=== PATIENT | male | born 1980 | race Caucasian/White ===

== ENCOUNTER 2020-02-27 09:32 | Emergency (ER) | payer SELFPAY ==
[~2020-02-27] VITALS: Ht 188 cm; Wt 114.8 kg
[~2020-02-27 09:32] MED LIST: NAPR-1154 PO; NO HOME MEDS
[2020-02-27 09:34] VITALS: BP 164/93
[2020-02-27] MEDS ORDERED: PRED20TA PO (10:51)
== END 2020-02-27 11:00 | disposition home or self-care (01) ==
LOC: ER 09:33
DX: L25.9 Unspecified contact dermatitis, unspecified cause (principal); F12.90 Cannabis use, unspecified, uncomplicated; Z86.19 Personal history of other infectious and parasitic diseases; Z87.442 Personal history of urinary calculi; Z72.89 Other problems related to lifestyle; Z59.0 Homelessness; Z60.2 Problems related to living alone; Z79.899 Other long term (current) drug therapy
CPT/HCPCS: 99283

== ENCOUNTER 2020-03-12 12:46 | Emergency (ER) | payer MEDICAID ==
[~2020-03-12] VITALS: Ht 188 cm; Wt 110.0 kg
[~2020-03-12 12:46] MED LIST changes: +PRED20TA PO
[2020-03-12] MEDS ORDERED: normal saline 1000ml 1,000 ML IV ONE (15:45)
[2020-03-12] MEDS ORDERED: LORazepam 1 MG tablet PO ONE (15:45)
[2020-03-12] MEDS ORDERED: ondansetron/PF 4mg/2ml inj IV ONE (15:45)
[2020-03-12 16:28] LABS: BASOPHILS # (AUTO) 0.1 X10'3 (0-0.2); BASOPHILS % (AUTO) 0.4 % (0-1); EOSINOPHILS # (AUTO) 0.1 X10'3 (0-0.9); EOSINOPHILS % (AUTO) 0.8 % (0-6); HEMATOCRIT 50.7 % (42.0-52.0); HEMOGLOBIN 16.7 g/dl (14.0-17.9); LYMPHOCYTES # (AUTO) 3.6 X10'3 (1.1-4.8); LYMPHOCYTES % (AUTO) 19.1 % (21-51); MEAN CORPUSCULAR HEMOGLOBIN 30.3 PG (27.0-31.0); MEAN CORPUSCULAR VOLUME 91.9 FL (78-98); MEAN PLATELET VOLUME 7.6 FL (7.4-10.4); MONOCYTES # (AUTO) 1.7 X10'3 (0-0.9); MONOCYTES % (AUTO) 9.3 % (2-12); NEUTROPHILS # (AUTO) 13.3 X10'3 (1.8-7.7); NEUTROPHILS % (AUTO) 70.4 % (42-75); PLATELET COUNT 213 X10'3 (140-440); RED BLOOD COUNT 5.52 X10'6 (4.70-6.10); RED CELL DISTRIBUTION WIDTH 15.4 % (11.5-14.5); WHITE BLOOD COUNT 18.8 X10'3 (4.5-11.0)
[2020-03-12 16:30] LABS: ALANINE AMINOTRANSFERASE 392 U/L (12-78); ALBUMIN 4.1 G/DL (3.4-5.0); ALBUMIN/GLOBULIN RATIO 0.9 (1.1-1.5); ALKALINE PHOSPHATASE 111 IU/L (46-116); ANION GAP 9 (8-16); ASPARTATE AMINO TRANSFERASE 309 U/L (10-37); BILIRUBIN,TOTAL 1.3 MG/DL (0.1-1.0); BLOOD UREA NITROGEN 20 MG/DL (7-18); BUN/CREATININE RATIO 20.6 (5.4-32.0); CALCIUM 9.2 MG/DL (8.5-10.1); CHLORIDE 103 MMOL/L (99-107); CREATININE 0.97 MG/DL (0.60-1.10); GLUCOSE 112 MG/DL (70-104); LIPASE 836 U/L (73-393); POTASSIUM 3.7 MMOL/L (3.5-5.1); SODIUM 143 MMOL/L (135-145); TOTAL CARBON DIOXIDE 30.9 MMOL/L (24-32); TOTAL PROTEIN 8.5 G/DL (6.4-8.2); eGFR 85 ML/MIN
[2020-03-12] MEDS ORDERED: ONDA4TAB6 PO (16:49)
[2020-03-12 17:22] VITALS: BP 126/73
== END 2020-03-12 17:20 | disposition home or self-care (01) ==
LOC: ER 12:46
DX: K29.20 Alcoholic gastritis without bleeding (principal); F10.10 Alcohol abuse, uncomplicated; F12.90 Cannabis use, unspecified, uncomplicated; Z98.890 Other specified postprocedural states; Z60.2 Problems related to living alone; Z59.0 Homelessness; Z79.899 Other long term (current) drug therapy; Y90.9 Presence of alcohol in blood, level not specified
CPT/HCPCS: 36415; 80053; 83690; 85025; 93005; 96361; 96374; 99284; J2405; J7030

== ENCOUNTER 2020-09-24 11:15 | Emergency (ER) | payer BC, MEDICAID ==
[~2020-09-24] VITALS: Ht 185.4 cm; Wt 112.5 kg
[~2020-09-24 11:15] MED LIST changes: +ONDA4TAB6 PO; -PRED20TA PO
[2020-09-24 12:31] LABS: EOSINOPHILS # (AUTO) 0.2 X10'3 (0-0.9); EOSINOPHILS % (AUTO) 4.4 % (0-6); HEMATOCRIT 40.7 % (42.0-52.0); HEMOGLOBIN 13.5 g/dl (14.0-17.9); LYMPHOCYTES % (AUTO) 21.5 % (21-51); MEAN CORPUSCULAR HEMOGLOBIN 30.2 PG (27.0-31.0); MEAN CORPUSCULAR HGB CONC 33.1 g/dL (33.0-36.5); MEAN CORPUSCULAR VOLUME 91.3 FL (78-98); MEAN PLATELET VOLUME 7.7 FL (7.4-10.4); MONOCYTES # (AUTO) 0.5 X10'3 (0-0.9); MONOCYTES % (AUTO) 11.5 % (2-12); NEUTROPHILS # (AUTO) 2.8 X10'3 (1.8-7.7); NEUTROPHILS % (AUTO) 61.6 % (42-75); PLATELET COUNT 168 X10'3 (140-440); RED BLOOD COUNT 4.46 X10'6 (4.70-6.10); WHITE BLOOD COUNT 4.6 X10'3 (4.5-11.0)
[2020-09-24 12:44] LABS: ALANINE AMINOTRANSFERASE 60 U/L (12-78); ALBUMIN 2.9 G/DL (3.4-5.0); ALBUMIN/GLOBULIN RATIO 0.6 (1.1-1.5); ALKALINE PHOSPHATASE 117 IU/L (46-116); ANION GAP 9 (8-16); ASPARTATE AMINO TRANSFERASE 93 U/L (10-37); BILIRUBIN,TOTAL 0.8 MG/DL (0.1-1.0); BLOOD UREA NITROGEN 9 MG/DL (7-18); BUN/CREATININE RATIO 12.2 (5.4-32.0); CALCIUM 8.7 MG/DL (8.5-10.1); CHLORIDE 105 MMOL/L (99-107); CREATININE 0.74 MG/DL (0.60-1.10); GLUCOSE 109 MG/DL (70-104); POTASSIUM 3.7 MMOL/L (3.5-5.1); SODIUM 142 MMOL/L (135-145); TOTAL CARBON DIOXIDE 28.4 MMOL/L (24-32); TOTAL PROTEIN 7.7 G/DL (6.4-8.2); eGFR > 90 ML/MIN
[2020-09-24 13:34] VITALS: BP 115/56
== END 2020-09-24 13:35 | disposition home or self-care (01) ==
LOC: ER 11:16
DX: R60.9 Edema, unspecified (principal); F12.90 Cannabis use, unspecified, uncomplicated; Z86.19 Personal history of other infectious and parasitic diseases; Z87.442 Personal history of urinary calculi; Z72.89 Other problems related to lifestyle; Z60.2 Problems related to living alone; Z59.0 Homelessness; Z79.899 Other long term (current) drug therapy
CPT/HCPCS: 36415; 80053; 85025; 93970; 99284

== ENCOUNTER 2021-02-19 05:46 | Inpatient (IN) | payer BC, MEDICAID ==
[~2021-02-19] VITALS: Ht 188 cm; Wt 100.0 kg
[2021-02-19] MEDS ORDERED: ondansetron/PF 4mg/2ml inj IV ONE (07:20)
[2021-02-19] MEDS ORDERED: normal saline 1000ML IV soln IVB ONE (07:20)
[2021-02-19] MEDS ORDERED: famotidine/PF 10 mg/ml inj IV ONE (07:25)
[2021-02-19] MEDS ORDERED: pantoprazole 40 MG vial IV ONE (07:25)
[2021-02-19 08:31] LABS: ALANINE AMINOTRANSFERASE 51 U/L (12-78); ALBUMIN 2.4 G/DL (3.4-5.0); ALBUMIN/GLOBULIN RATIO 0.5 (1.1-1.5); ALKALINE PHOSPHATASE 170 IU/L (46-116); ANION GAP 11 (8-16); ASPARTATE AMINO TRANSFERASE 89 U/L (10-37); BILIRUBIN,TOTAL 2.6 MG/DL (0.1-1.0); BLOOD UREA NITROGEN 11 MG/DL (7-18); BUN/CREATININE RATIO 11.1 (5.4-32.0); CHLORIDE 107 MMOL/L (99-107); CREATININE 0.99 MG/DL (0.60-1.10); GLUCOSE 126 MG/DL (70-104); POTASSIUM 3.2 MMOL/L (3.5-5.1); SODIUM 145 MMOL/L (135-145); TOTAL CARBON DIOXIDE 27.5 MMOL/L (24-32); TOTAL PROTEIN 7.3 G/DL (6.4-8.2); eGFR 83 ML/MIN
[2021-02-19 08:34] LABS: CLARITY,URINE CLOUDY (Clear); COLOR,URINE BROWN (Yellow); GLUCOSE, URINE NEGATIVE (Neg); KETONES,URINE TRACE mg/dl (Neg); LEUKOCYTE ESTERASE ,URINE NEGATIVE (Neg); NITRITES, URINE NEGATIVE (Neg); OCCULT BLOOD,URINE LARGE (Neg); PROTEIN,URINE >=300 mg/dl (Neg)
[2021-02-19 08:35] LABS: LIPASE 329 U/L (73-393); TROPONIN I < 0.04 NG/ML (0.0-0.05)
[2021-02-19 09:00] LABS: UA COLLECTION TYPE VOIDED
[2021-02-19 09:15] LABS: RBC,URINE TNTC /HPF (0-2)
[2021-02-19 09:18] LABS: CELLULAR CAST 0-4 /LPF (NEGATIVE); HYALINE CASTS 0-3 /LPF (NEGATIVE)
[2021-02-19 09:20] LABS: SQUAMOUS EPITHELIAL CELL,UR FEW /LPF (FEW)
[2021-02-19 09:25] LABS: BASOPHILS % (AUTO) 0.7 % (0-1); EOSINOPHILS % (AUTO) 0.6 % (0-6); HEMATOCRIT 34.1 % (42.0-52.0); HEMOGLOBIN 11.6 g/dl (14.0-17.9); LYMPHOCYTES # (AUTO) 0.6 X10'3 (1.1-4.8); LYMPHOCYTES % (AUTO) 17.7 % (21-51); MEAN CORPUSCULAR HEMOGLOBIN 32.2 PG (27.0-31.0); MEAN CORPUSCULAR HGB CONC 34.1 g/dL (33.0-36.5); MEAN CORPUSCULAR VOLUME 94.6 FL (78-98); MEAN PLATELET VOLUME 8.8 FL (7.4-10.4); MONOCYTES # (AUTO) 0.4 X10'3 (0-0.9); MONOCYTES % (AUTO) 12.5 % (2-12); NEUTROPHILS # (AUTO) 2.2 X10'3 (1.8-7.7); NEUTROPHILS % (AUTO) 68.5 % (42-75); RED CELL DISTRIBUTION WIDTH 15.8 % (11.5-14.5); WHITE BLOOD COUNT 3.3 X10'3 (4.5-11.0)
[2021-02-19 09:25] LABS: BACTERIA,URINE 1+ /HPF (Neg); WBC,URINE 0-4 /HPF (0-4)
[2021-02-19 09:31] LABS: MUCUS STRANDS FEW /LPF (Neg)
[2021-02-19 09:33] LABS: PLATELET COUNT 43 X10'3 (140-440)
[2021-02-19] MEDS ORDERED: dexamethasone sod phosphate 10mg/ml inj IV STA (09:55)
[2021-02-19] MEDS ORDERED: metoclopramide 5 mg/ml inj IV ONE (11:40)
[2021-02-19 11:46] LABS: PARTIAL THROMBOPLASTIN TIME 32 SECONDS (22-32)
[2021-02-19 11:55] LABS: RED BLOOD COUNT 3.64 X10'6 (4.70-6.10); RETICULOCYTE % (AUTO) 0.7 % (0.5-1.5)
[2021-02-19 12:08] LABS: LACTATE DEHYDROGENASE 309 U/L (85-227)
[2021-02-19 12:41] LABS: PLATELET ESTIMATE DECREASED; TOTAL CELLS COUNTED 100
[2021-02-19] MEDS ORDERED: acetaminophen 325mg tablet PO PRN ×2 (14:30)
[2021-02-19] MEDS ORDERED: HYDROcodone/acetaminophen 10/325mg tab PO PRN (14:30)
[2021-02-19] MEDS ORDERED: ondansetron/PF 4mg/2ml inj IV PRN (14:30)
[2021-02-19] MEDS ORDERED: HYDROcodone/acetaminophen 5mg/325mg tablet PO PRN (14:30)
[2021-02-19] MEDS ORDERED: mag hydrox/Alum hydrox/simeth 30ml oral suspension PO PRN (14:30)
[2021-02-19] MEDS ORDERED: magnesium hydroxide 30ml (MOM) UD suspension PO PRN (14:30)
[2021-02-19] MEDS ORDERED: morphine 2 MG/ML inj. syringe IV PRN ×2 (14:30)
[2021-02-19 15:02] LABS: PHOSPHORUS 2.7 MG/DL (2.3-4.5)
[2021-02-19] MEDS ORDERED: NO HOME MEDS (15:12)
--- NOTE | 2021-02-19 15:14 | NUR ---
ASSUMED CARE OF PT FROM WILLIAMS MOORE,
--- NOTE | 2021-02-19 15:23 | NUR ---
pt is resting quietly on gurney, resp even and unlabored
[2021-02-19 16:29] VITALS: BP 134/81
[2021-02-19 16:48] VITALS: BP 126/73
[2021-02-19] MEDS ORDERED: LORazepam 1 MG tablet PO PRN (17:15)
[2021-02-19] MEDS ORDERED: LORazepam 2 mg/ml vial IV PRN (17:15)
[2021-02-19] MEDS ORDERED: thiamine inj. 100 MG in normal saline 100ml IV soln 100 ML IV ONE (17:15)
[2021-02-19] MEDS ORDERED: folic acid 1mg/0.2ml inj IV ONE (17:20)
[2021-02-19] MEDS ORDERED: MULTIVIT-MIN/FERROUS GLUCONATE 9 MG/15 ML LIQUID PO ONE (17:20)
[2021-02-19 17:48] VITALS: BP 128/74
[2021-02-19 19:45] VITALS: BP 92/69
[2021-02-19] MEDS: docusate sod 100mg capsule PO SCH (23:02)
[2021-02-19] MEDS: dextrose 5%-1/2 normal saline 1,000 ML IV SCH (23:04)
[2021-02-20] VITALS: BP 129/66
[2021-02-20 06:33] LABS: BASOPHILS % (AUTO) 0.2 % (0-1); EOSINOPHILS % (AUTO) 0.3 % (0-6); HEMATOCRIT 34.6 % (42.0-52.0); HEMOGLOBIN 11.8 g/dl (14.0-17.9); LYMPHOCYTES # (AUTO) 0.5 X10'3 (1.1-4.8); LYMPHOCYTES % (AUTO) 7.9 % (21-51); MEAN CORPUSCULAR HEMOGLOBIN 32.4 PG (27.0-31.0); MEAN CORPUSCULAR HGB CONC 34.3 g/dL (33.0-36.5); MEAN CORPUSCULAR VOLUME 94.4 FL (78-98); MEAN PLATELET VOLUME 8.9 FL (7.4-10.4); MONOCYTES # (AUTO) 0.4 X10'3 (0-0.9); MONOCYTES % (AUTO) 6.1 % (2-12); NEUTROPHILS % (AUTO) 85.5 % (42-75); PLATELET COUNT 69 X10'3 (140-440); RED BLOOD COUNT 3.66 X10'6 (4.70-6.10); RED CELL DISTRIBUTION WIDTH 16.2 % (11.5-14.5); WHITE BLOOD COUNT 5.9 X10'3 (4.5-11.0)
[2021-02-20 06:47] LABS: ALANINE AMINOTRANSFERASE 42 U/L (12-78); ALBUMIN 2.2 G/DL (3.4-5.0); ALKALINE PHOSPHATASE 117 IU/L (46-116); ANION GAP 7 (8-16); ASPARTATE AMINO TRANSFERASE 71 U/L (10-37); BILIRUBIN,TOTAL 4.4 MG/DL (0.1-1.0); BLOOD UREA NITROGEN 17 MG/DL (7-18); BUN/CREATININE RATIO 17.2 (5.4-32.0); CALCIUM 7.3 MG/DL (8.5-10.1); CHLORIDE 105 MMOL/L (99-107); CREATININE 0.99 MG/DL (0.60-1.10); GLUCOSE 158 MG/DL (70-104); SODIUM 139 MMOL/L (135-145); TOTAL CARBON DIOXIDE 27.1 MMOL/L (24-32); eGFR 83 ML/MIN
[2021-02-20 06:48] LABS: POTASSIUM 3.9 MMOL/L (3.5-5.1)
[2021-02-20 06:49] LABS: TOTAL PROTEIN 6.9 G/DL (6.4-8.2)
[2021-02-20 06:59] LABS: ALBUMIN/GLOBULIN RATIO 0.5 (1.1-1.5)
[2021-02-20 07:00] VITALS: BP 110/65
--- NOTE | 2021-02-20 07:29 | NUR ---
Problems reprioritized. Patient report given, questions answered & plan of care reviewed with Shadia MOORE.
[2021-02-20] MEDS: docusate sod 100mg capsule PO SCH (07:57)
[2021-02-20] MEDS ORDERED: multivitamins, therapeutics tablet PO SCH (08:00)
[2021-02-20] MEDS: dextrose 5%-1/2 normal saline 1,000 ML IV SCH (08:00)
[2021-02-20] MEDS ORDERED: folic acid inj. 2 MG, thiamine inj. 100 MG, MVI, adult No.4 with vit. K 10 ML in dextro... IV SCH ×4 (08:00)
[2021-02-20] MEDS ORDERED: thiamine 100mg tablet PO SCH (08:00)
[2021-02-20] MEDS ORDERED: folic acid 1mg tablet PO SCH (08:00)
[2021-02-20] MEDS ORDERED: ONDA4TAB6 PO (09:52)
[2021-02-20] MEDS ORDERED: LORA-269 PO (09:52)
--- NOTE | 2021-02-20 11:52 | NUR ---
Pt discharged home by Dr Gomes, no current withdrawl symptoms. Pt escript ativan perscription and zofran. Called pharmacy, no triplicate needed. IV taken out, Pt took all belongings from room. Pt ordered uber for discharge home.
== END 2021-02-20 11:50 | disposition home or self-care (01) ==
LOC: ER 05:47 → ED HOLD 14:31 → SUR 3N 19:30
PROVIDERS: ADMIT Internal Medicine; ATTEND Internal Medicine
PROC: 30233N1 Transfusion of Nonautologous Red Blood Cells into Peripheral Vein, Percutaneous Approach (ICD-10-PCS; principal; 2021-02-19)
DX: B18.2 Chronic viral hepatitis C (principal); D61.818 Other pancytopenia; K85.90 Acute pancreatitis without necrosis or infection, unspecified; R31.9 Hematuria, unspecified; E86.0 Dehydration; F10.20 Alcohol dependence, uncomplicated; Z60.2 Problems related to living alone; Z20.822 Contact with and (suspected) exposure to COVID-19; F12.90 Cannabis use, unspecified, uncomplicated; Z87.442 Personal history of urinary calculi; Z59.0 Homelessness
CPT/HCPCS: 36415; 36430; 74176; 80053; 80320; 81001; 82948; 83615; 83690; 83880; 84100; 84484; 85007; 85025; 85045; 85610; 85651; 85730; 86885; 86900; 86901; 87081; 87635; 96374; 96375; 99285; C9113; C9803; G0378; J1100; J2405; J2765; J3411; J3490; J7030; P9035

== ENCOUNTER 2021-03-22 11:13 | Emergency (ER) | payer MEDICAID ==
[~2021-03-22] VITALS: Ht 185.4 cm; Wt 100.0 kg
[~2021-03-22 11:13] MED LIST changes: +LORA-269 PO; -NAPR-1154 PO; -NO HOME MEDS
[2021-03-22 11:23] VITALS: BP 145/104
[2021-03-22] MEDS ORDERED: ONDA4TAB6 PO (13:08)
== END 2021-03-22 13:14 | disposition home or self-care (01) ==
LOC: ER 11:13
DX: R11.0 Nausea (principal); F12.90 Cannabis use, unspecified, uncomplicated; Z76.0 Encounter for issue of repeat prescription; Z86.19 Personal history of other infectious and parasitic diseases; Z87.442 Personal history of urinary calculi; Z98.890 Other specified postprocedural states; Z72.89 Other problems related to lifestyle; Z60.2 Problems related to living alone; Z59.0 Homelessness; Z79.899 Other long term (current) drug therapy
CPT/HCPCS: 99281

== ENCOUNTER 2021-04-18 11:49 | Emergency (ER) | payer MEDICAID ==
[~2021-04-18] VITALS: Ht 185.4 cm; Wt 95.5 kg
[2021-04-18 12:22] VITALS: BP 148/94
[2021-04-18] MEDS ORDERED: ONDA4TAB6 PO (12:32)
== END 2021-04-18 13:06 | disposition home or self-care (01) ==
LOC: ER 11:49
DX: R11.2 Nausea with vomiting, unspecified (principal); F12.90 Cannabis use, unspecified, uncomplicated; Z86.19 Personal history of other infectious and parasitic diseases; Z87.442 Personal history of urinary calculi; Z98.890 Other specified postprocedural states; Z72.89 Other problems related to lifestyle; Z60.2 Problems related to living alone; Z59.00 Homelessness unspecified; Z79.899 Other long term (current) drug therapy
CPT/HCPCS: 99281; 99283

== ENCOUNTER 2021-06-13 20:27 | Emergency (ER) | payer MEDICAID ==
[~2021-06-13] VITALS: Ht 185.4 cm; Wt 215.0 kg
[2021-06-13] MEDS ORDERED: thiamine 100mg/ml 2ml inj. IV ONE (21:00)
[2021-06-13 21:05] LABS: BASOPHILS # (AUTO) 0.1 X10'3 (0-0.2); BASOPHILS % (AUTO) 1.7 % (0-1); EOSINOPHILS # (AUTO) 0.1 X10'3 (0-0.9); EOSINOPHILS % (AUTO) 2.7 % (0-6); HEMATOCRIT 29.3 % (42.0-52.0); LYMPHOCYTES # (AUTO) 0.9 X10'3 (1.1-4.8); MEAN CORPUSCULAR HEMOGLOBIN 31.3 PG (27.0-31.0); MEAN CORPUSCULAR HGB CONC 34.1 g/dL (33.0-36.5); MEAN CORPUSCULAR VOLUME 91.6 FL (78-98); MONOCYTES # (AUTO) 0.3 X10'3 (0-0.9); NEUTROPHILS # (AUTO) 2.4 X10'3 (1.8-7.7); NEUTROPHILS % (AUTO) 63.6 % (42-75); PLATELET COUNT 51 X10'3 (140-440); RED CELL DISTRIBUTION WIDTH 16.7 % (11.5-14.5); WHITE BLOOD COUNT 3.7 X10'3 (4.5-11.0)
[2021-06-13] MEDS ORDERED: normal saline 1000ml 1,000 ML IV ONE (21:05)
[2021-06-13] MEDS ORDERED: famotidine/PF 10 mg/ml inj IV ONE (21:05)
[2021-06-13] MEDS ORDERED: pantoprazole IV 40 MG in normal saline 100ml IV soln 100 ML IV ONE (21:05)
[2021-06-13] MEDS ORDERED: ondansetron/PF 4mg/2ml inj IV ONE (21:05)
[2021-06-13] MEDS ORDERED: pantoprazole IV 40 MG in dextrose 5%-water 100 ML IV ONE (21:13)
[2021-06-13 21:19] LABS: ALANINE AMINOTRANSFERASE 35 U/L (12-78); ALBUMIN 2.7 G/DL (3.4-5.0); ALBUMIN/GLOBULIN RATIO 0.5 (1.1-1.5); ALKALINE PHOSPHATASE 114 IU/L (46-116); ANION GAP 17 (8-16); ASPARTATE AMINO TRANSFERASE 64 U/L (10-37); BILIRUBIN,TOTAL 2.7 MG/DL (0.1-1.0); BLOOD UREA NITROGEN 13 MG/DL (7-18); BUN/CREATININE RATIO 9.6 (5.4-32.0); CALCIUM 8.2 MG/DL (8.5-10.1); CHLORIDE 101 MMOL/L (99-107); CREATININE 1.35 MG/DL (0.60-1.10); ETHANOL 0.102 GM/DL (0.0-0.010); GLUCOSE 126 MG/DL (70-104); LIPASE 313 U/L (73-393); SODIUM 141 MMOL/L (135-145); TOTAL CARBON DIOXIDE 23.4 MMOL/L (24-32); TOTAL PROTEIN 7.8 G/DL (6.4-8.2); eGFR 58 ML/MIN
--- NOTE | 2021-06-13 21:25 | NUR ---
REPORTED K CRITICAL TO DR MAXWELL
[2021-06-13] MEDS ORDERED: POTA-207 PO (21:40)
[2021-06-13] MEDS ORDERED: proCHLORperazine 10 MG/2 ml inj IV ONE (21:40)
[2021-06-13] MEDS ORDERED: PROC-8 PO (21:40)
[2021-06-13] MEDS ORDERED: PANT-47 PO (21:40)
[2021-06-13] MEDS ORDERED: chlordiazePOXIDE 25mg capsule PO ONE (21:40)
[2021-06-13 21:41] LABS: PLATELET ESTIMATE DECREASED
[2021-06-13 21:42] LABS: ANISOCYTOSIS 1+; POLYCHROMASIA 1+; TEAR DROP CELLS FEW
[2021-06-13 23:09] VITALS: BP 118/76
== END 2021-06-13 23:00 | disposition home or self-care (01) ==
LOC: ER 20:28
DX: F10.10 Alcohol abuse, uncomplicated (principal); F10.129 Alcohol abuse with intoxication, unspecified; R11.2 Nausea with vomiting, unspecified; R10.84 Generalized abdominal pain; F12.90 Cannabis use, unspecified, uncomplicated; Z86.19 Personal history of other infectious and parasitic diseases; Z87.442 Personal history of urinary calculi; Z98.890 Other specified postprocedural states; Z72.89 Other problems related to lifestyle; Z59.00 Homelessness unspecified; Z60.2 Problems related to living alone; Z79.899 Other long term (current) drug therapy; Y90.0 Blood alcohol level of less than 20 mg/100 ml
CPT/HCPCS: 36415; 80053; 80320; 83690; 85008; 85025; 93005; 96365; 96366; 96375; 99284; C9113; J0780; J2405; J3411; J3490; J7030; J7060

== ENCOUNTER 2021-09-27 16:54 | Emergency (ER) | payer MEDICAID ==
[~2021-09-27] VITALS: Ht 185.4 cm; Wt 90.9 kg
[~2021-09-27 16:54] MED LIST changes: +PANT-47 PO; +PROC-8 PO
--- NOTE | 2021-09-27 17:58 | NUR ---
AGREE WITH PATTERNMAKERIvon MONROYIN GENERAL ASSESSMENT.
[2021-09-27] MEDS ORDERED: proCHLORperazine 10 MG/2 ml inj IV ONE (18:30)
[2021-09-27] MEDS ORDERED: chlordiazePOXIDE 25mg capsule PO ONE (18:30)
[2021-09-27] MEDS ORDERED: pantoprazole 40MG/NS 100ML BAG 100 ML IV ONE (18:30)
[2021-09-27] MEDS ORDERED: ondansetron/PF 4mg/2ml inj IV ONE (18:30)
[2021-09-27] MEDS ORDERED: normal saline 1000ML IV soln IVB ONE (18:30)
[2021-09-27] MEDS ORDERED: famotidine/PF 10 mg/ml inj IV ONE (18:30)
[2021-09-27 18:53] LABS: ALANINE AMINOTRANSFERASE 44 U/L (12-78); ALBUMIN 2.6 G/DL (3.4-5.0); ALKALINE PHOSPHATASE 112 IU/L (46-116); ANION GAP 16 (8-16); ASPARTATE AMINO TRANSFERASE 89 U/L (10-37); BILIRUBIN,TOTAL 4.6 MG/DL (0.1-1.0); BLOOD UREA NITROGEN 18 MG/DL (7-18); BUN/CREATININE RATIO 13.3 (5.4-32.0); CALCIUM 8.3 MG/DL (8.5-10.1); CHLORIDE 99 MMOL/L (99-107); CREATININE 1.35 MG/DL (0.60-1.10); GLUCOSE 107 MG/DL (70-104); LIPASE 829 U/L (73-393); MAGNESIUM 1.6 MG/DL (1.5-2.4); SODIUM 140 MMOL/L (135-145); TOTAL CARBON DIOXIDE 25.1 MMOL/L (24-32); eGFR 58 ML/MIN
[2021-09-27 18:55] LABS: ALBUMIN/GLOBULIN RATIO 0.5 (1.1-1.5); TOTAL PROTEIN 7.8 G/DL (6.4-8.2)
[2021-09-27 18:57] LABS: BASOPHILS # (AUTO) 0.1 X10'3 (0-0.2); BASOPHILS % (AUTO) 1.6 % (0-1); EOSINOPHILS % (AUTO) 0.7 % (0-6); HEMATOCRIT 30.6 % (42.0-52.0); HEMOGLOBIN 10.4 g/dl (14.0-17.9); LYMPHOCYTES # (AUTO) 2.2 X10'3 (1.1-4.8); LYMPHOCYTES % (AUTO) 31.9 % (21-51); MEAN CORPUSCULAR HEMOGLOBIN 31.1 PG (27.0-31.0); MEAN CORPUSCULAR HGB CONC 34.1 g/dL (33.0-36.5); MEAN CORPUSCULAR VOLUME 91.3 FL (78-98); MONOCYTES # (AUTO) 0.6 X10'3 (0-0.9); MONOCYTES % (AUTO) 8.2 % (2-12); NEUTROPHILS # (AUTO) 3.9 X10'3 (1.8-7.7); NEUTROPHILS % (AUTO) 57.6 % (42-75); PLATELET COUNT 85 X10'3 (140-440); RED BLOOD COUNT 3.35 X10'6 (4.70-6.10); RED CELL DISTRIBUTION WIDTH 15.8 % (11.5-14.5); WHITE BLOOD COUNT 6.8 X10'3 (4.5-11.0)
[2021-09-27 18:58] LABS: POTASSIUM 2.7 MMOL/L (3.5-5.1)
[2021-09-27] MEDS ORDERED: thiamine inj. 100 MG in normal saline 100ml IV soln 100 ML IV ONE (19:10)
[2021-09-27] MEDS ORDERED: potassium Cl 10 mEq/100mL bag IV ONE (19:10)
[2021-09-27] MEDS ORDERED: potassium Cl 20 mEq SR tablet PO STA (19:10)
[2021-09-27 20:00] LABS: CLARITY,URINE SLIGHTLY CLOUDY (Clear); COLOR,URINE YELLOW (Yellow); GLUCOSE, URINE NEGATIVE (Neg); KETONES,URINE TRACE mg/dl (Neg); LEUKOCYTE ESTERASE ,URINE NEGATIVE (Neg); NITRITES, URINE NEGATIVE (Neg); OCCULT BLOOD,URINE LARGE (Neg); PROTEIN,URINE 100 mg/dl (Neg)
[2021-09-27 20:08] LABS: UA COLLECTION TYPE URINAL
[2021-09-27 20:17] LABS: BACTERIA,URINE FEW /HPF (Neg); RBC,URINE TNTC /HPF (0-2); SQUAMOUS EPITHELIAL CELL,UR FEW /LPF (FEW); WBC,URINE 0-4 /HPF (0-4)
[2021-09-27] MEDS ORDERED: PROC-8 PO (20:41)
[2021-09-27] MEDS ORDERED: POTA-207 PO (20:41)
[2021-09-27] MEDS ORDERED: PANT-47 PO (20:41)
[2021-09-27 22:24] VITALS: BP 132/79
== END 2021-09-27 22:31 | disposition home or self-care (01) ==
LOC: ER 16:55
DX: K29.20 Alcoholic gastritis without bleeding (principal); E87.6 Hypokalemia; F12.10 Cannabis abuse, uncomplicated; Z87.442 Personal history of urinary calculi
CPT/HCPCS: 36415; 80053; 81001; 83690; 83735; 84484; 85025; 93005; 96365; 96375; 99285; C9113; J0780; J2405; J3411; J3480; J3490; J7030

== ENCOUNTER 2021-10-17 09:37 | Emergency (ER) | payer MEDICAID ==
[~2021-10-17] VITALS: Ht 185.4 cm; Wt 86.4 kg
[~2021-10-17 09:37] MED LIST changes: +POTA-207 PO
[2021-10-17 09:41] VITALS: BP 159/90
[2021-10-17 10:50] LABS: BASOPHILS % (AUTO) 0.5 % (0-1); EOSINOPHILS # (AUTO) 0.1 X10'3 (0-0.9); EOSINOPHILS % (AUTO) 1.9 % (0-6); HEMATOCRIT 25.4 % (42.0-52.0); HEMOGLOBIN 8.6 g/dl (14.0-17.9); LYMPHOCYTES # (AUTO) 1.4 X10'3 (1.1-4.8); LYMPHOCYTES % (AUTO) 18.7 % (21-51); MEAN CORPUSCULAR HEMOGLOBIN 31.1 PG (27.0-31.0); MEAN CORPUSCULAR HGB CONC 33.8 g/dL (33.0-36.5); MEAN CORPUSCULAR VOLUME 91.9 FL (78-98); MEAN PLATELET VOLUME 6.9 FL (7.4-10.4); MONOCYTES # (AUTO) 1.2 X10'3 (0-0.9); MONOCYTES % (AUTO) 16.8 % (2-12); NEUTROPHILS # (AUTO) 4.5 X10'3 (1.8-7.7); NEUTROPHILS % (AUTO) 62.1 % (42-75); PLATELET COUNT 152 X10'3 (140-440); RED BLOOD COUNT 2.76 X10'6 (4.70-6.10); RED CELL DISTRIBUTION WIDTH 18.3 % (11.5-14.5); WHITE BLOOD COUNT 7.3 X10'3 (4.5-11.0)
[2021-10-17 11:06] LABS: ANISOCYTOSIS 2+; LARGE PLATELETS FEW; PLATELET ESTIMATE NORMAL; TOTAL CELLS COUNTED 100
[2021-10-17 11:07] LABS: TARGET CELLS FEW; TEAR DROP CELLS FEW
--- NOTE | 2021-10-17 11:10 | NUR ---
urine sent to LAB
[2021-10-17 11:13] LABS: ALANINE AMINOTRANSFERASE 39 U/L (12-78); ALBUMIN 2.3 G/DL (3.4-5.0); ALBUMIN/GLOBULIN RATIO 0.5 (1.1-1.5); ALKALINE PHOSPHATASE 236 IU/L (46-116); ANION GAP 9 (8-16); ASPARTATE AMINO TRANSFERASE 61 U/L (10-37); BILIRUBIN,TOTAL 3.2 MG/DL (0.1-1.0); BLOOD UREA NITROGEN 9 MG/DL (7-18); BUN/CREATININE RATIO 7.3 (5.4-32.0); CALCIUM 7.8 MG/DL (8.5-10.1); CHLORIDE 102 MMOL/L (99-107); CREATININE 1.23 MG/DL (0.60-1.10); ETHANOL 0.016 GM/DL (0.0-0.010); GLUCOSE 87 MG/DL (70-104); LIPASE 525 U/L (73-393); POTASSIUM 3.1 MMOL/L (3.5-5.1); SODIUM 138 MMOL/L (135-145); TOTAL CARBON DIOXIDE 26.6 MMOL/L (24-32); TOTAL PROTEIN 7.1 G/DL (6.4-8.2); eGFR 64 ML/MIN
[2021-10-17 11:22] LABS: CLARITY,URINE SLIGHTLY CLOUDY (Clear); GLUCOSE, URINE NEGATIVE (Neg); KETONES,URINE TRACE mg/dl (Neg); LEUKOCYTE ESTERASE ,URINE NEGATIVE (Neg); NITRITES, URINE NEGATIVE (Neg); OCCULT BLOOD,URINE LARGE (Neg); PROTEIN,URINE 100 mg/dl (Neg); UROBILINOGEN,URINE 0.2 E.U/dL (0.2-1.0)
[2021-10-17 11:26] LABS: UA COLLECTION TYPE NON-SPECIFIED
[2021-10-17 11:27] LABS: COLOR,URINE DARK YELLOW (Yellow)
[2021-10-17] MEDS ORDERED: SULF1TAB49 PO (11:27)
[2021-10-17 11:30] LABS: RBC,URINE TNTC /HPF (0-2)
[2021-10-17 11:31] LABS: BACTERIA,URINE 1+ /HPF (Neg); MUCUS STRANDS NONE SEEN /LPF (Neg); SQUAMOUS EPITHELIAL CELL,UR FEW /LPF (FEW)
[2021-10-17 11:33] LABS: URINE AMPHETAMINE SCREEN NEGATIVE (Neg); URINE BARBITUATE SCREEN NEGATIVE (Neg); URINE BENZODIAZEPINES SCREEN NEGATIVE (Neg); URINE CANNABINOID SCREEN NEGATIVE (Neg); URINE COCAINE SCREEN NEGATIVE (Neg); URINE METHADONE SCREEN NEGATIVE (Neg); URINE OPIATE SCREEN NEGATIVE (Neg); URINE PHENCYCLIDINE SCREEN NEGATIVE (Neg)
== END 2021-10-17 11:40 | disposition home or self-care (01) ==
LOC: ER 09:38
DX: K70.30 Alcoholic cirrhosis of liver without ascites (principal); F10.20 Alcohol dependence, uncomplicated; H60.02 Abscess of left external ear; F12.90 Cannabis use, unspecified, uncomplicated; Z86.19 Personal history of other infectious and parasitic diseases; Z87.442 Personal history of urinary calculi; Z72.89 Other problems related to lifestyle; Z59.00 Homelessness unspecified; Z60.2 Problems related to living alone; Z79.899 Other long term (current) drug therapy; Y90.6 Blood alcohol level of 120-199 mg/100 ml
CPT/HCPCS: 10060; 36415; 71045; 80053; 80305; 80320; 81001; 83690; 85007; 85025; 87088; 99284

== ENCOUNTER 2022-11-17 14:55 | Emergency (ER) | payer MEDICAID ==
[~2022-11-17] VITALS: Ht 185.4 cm; Wt 88.6 kg
[~2022-11-17 14:55] MED LIST changes: -POTA-207 PO
[2022-11-17 14:59] VITALS: BP 117/73
[2022-11-17 15:28] LABS: CLARITY,URINE CLOUDY (Clear); COLOR,URINE AMBER (Yellow); GLUCOSE, URINE 100 mg/dl (Neg); KETONES,URINE 15 mg/dl (Neg); LEUKOCYTE ESTERASE ,URINE SMALL (Neg); OCCULT BLOOD,URINE MODERATE (Neg); PROTEIN,URINE 30 mg/dl (Neg)
[2022-11-17 15:30] LABS: UA COLLECTION TYPE CLN CATCH MIDSTREAM
[2022-11-17 15:33] LABS: NITRITES, URINE NEGATIVE (Neg)
[2022-11-17 15:36] LABS: BACTERIA,URINE 2+ /HPF (Neg); MUCUS STRANDS MODERATE /LPF (Neg); SQUAMOUS EPITHELIAL CELL,UR FEW /LPF (FEW); WBC,URINE 20-30 /HPF (0-4)
[2022-11-17 15:37] LABS: CELLULAR CAST 0-4 /LPF (NEGATIVE); WBC CLUMPS,URINE FEW /HPF (NEGATIVE)
[2022-11-17 15:41] LABS: BASOPHILS # (AUTO) 0.1 X10'3 (0-0.2); EOSINOPHILS # (AUTO) 0.5 X10'3 (0-0.9); EOSINOPHILS % (AUTO) 9.9 % (0-6); HEMATOCRIT 33.7 % (42.0-52.0); HEMOGLOBIN 11.1 g/dl (14.0-17.9); LYMPHOCYTES # (AUTO) 1.3 X10'3 (1.1-4.8); LYMPHOCYTES % (AUTO) 24.2 % (21-51); MEAN CORPUSCULAR HEMOGLOBIN 31.4 PG (27.0-31.0); MEAN CORPUSCULAR HGB CONC 33.1 g/dL (33.0-36.5); MEAN CORPUSCULAR VOLUME 94.9 FL (78-98); MEAN PLATELET VOLUME 7.7 FL (7.4-10.4); MONOCYTES # (AUTO) 0.6 X10'3 (0-0.9); MONOCYTES % (AUTO) 11.9 % (2-12); NEUTROPHILS # (AUTO) 2.8 X10'3 (1.8-7.7); PLATELET COUNT 76 X10'3 (140-440); RED BLOOD COUNT 3.55 X10'6 (4.70-6.10); RED CELL DISTRIBUTION WIDTH 16.9 % (11.5-14.5); WHITE BLOOD COUNT 5.2 X10'3 (4.5-11.0)
[2022-11-17 16:06] LABS: ALANINE AMINOTRANSFERASE 33 U/L (12-78); ALBUMIN 2.5 G/DL (3.4-5.0); ALBUMIN/GLOBULIN RATIO 0.7 (1.1-1.5); ALKALINE PHOSPHATASE 239 IU/L (46-116); ANION GAP 5 (8-16); ASPARTATE AMINO TRANSFERASE 55 U/L (10-37); BLOOD UREA NITROGEN 17 MG/DL (7-18); BUN/CREATININE RATIO 16.3 (10.0-20.0); CALCIUM 8.3 MG/DL (8.5-10.1); CHLORIDE 106 MMOL/L (99-107); CREATININE 1.04 MG/DL (0.60-1.10); GLUCOSE 125 MG/DL (70-104); LIPASE 363 U/L (73-393); POTASSIUM 3.5 MMOL/L (3.5-5.1); SODIUM 141 MMOL/L (135-145); TOTAL CARBON DIOXIDE 30.3 MMOL/L (24-32); TOTAL PROTEIN 6.2 G/DL (6.4-8.2); eGFR 78 ML/MIN
[2022-11-17] MEDS ORDERED: sulfamethoxazole/trimethoprim DS (800/160mg) tablet PO ONE (17:30)
[2022-11-17] MEDS ORDERED: SULF1TAB49 PO (18:19)
--- NOTE | 2022-11-17 18:26 | NUR ---
SCHEDULED TRANSPORT FOR PATIENT APPROX 1929 ETA
== END 2022-11-17 18:31 | disposition home or self-care (01) ==
LOC: ER 14:55
DX: N39.0 Urinary tract infection, site not specified (principal); R31.9 Hematuria, unspecified; F12.90 Cannabis use, unspecified, uncomplicated; F10.10 Alcohol abuse, uncomplicated; Z87.442 Personal history of urinary calculi; Z86.19 Personal history of other infectious and parasitic diseases; Z59.00 Homelessness unspecified; Z60.2 Problems related to living alone; Z79.899 Other long term (current) drug therapy; Y90.9 Presence of alcohol in blood, level not specified
CPT/HCPCS: 74176; 80053; 81001; 83690; 85025; 87088; 99284

== ENCOUNTER 2022-11-22 13:54 | Emergency (ER) | payer MEDICAID ==
[~2022-11-22] VITALS: Ht 185.4 cm; Wt 88.6 kg
[~2022-11-22 13:54] MED LIST changes: +SULF1TAB49 PO
[2022-11-22 17:31] LABS: BASOPHILS % (AUTO) 0.7 % (0-1); EOSINOPHILS # (AUTO) 0.2 X10'3 (0-0.9); EOSINOPHILS % (AUTO) 3.9 % (0-6); HEMOGLOBIN 11.2 g/dl (14.0-17.9); LYMPHOCYTES # (AUTO) 0.6 X10'3 (1.1-4.8); LYMPHOCYTES % (AUTO) 14.9 % (21-51); MEAN CORPUSCULAR HEMOGLOBIN 31.9 PG (27.0-31.0); MEAN CORPUSCULAR HGB CONC 34.1 g/dL (33.0-36.5); MEAN CORPUSCULAR VOLUME 93.5 FL (78-98); MEAN PLATELET VOLUME 7.7 FL (7.4-10.4); MONOCYTES # (AUTO) 0.5 X10'3 (0-0.9); MONOCYTES % (AUTO) 11.7 % (2-12); NEUTROPHILS # (AUTO) 2.7 X10'3 (1.8-7.7); NEUTROPHILS % (AUTO) 68.8 % (42-75); PLATELET COUNT 62 X10'3 (140-440); RED BLOOD COUNT 3.53 X10'6 (4.70-6.10); RED CELL DISTRIBUTION WIDTH 17.4 % (11.5-14.5); WHITE BLOOD COUNT 3.9 X10'3 (4.5-11.0)
[2022-11-22 17:32] LABS: ALANINE AMINOTRANSFERASE 40 U/L (12-78); ALBUMIN 2.6 G/DL (3.4-5.0); ALKALINE PHOSPHATASE 197 IU/L (46-116); ANION GAP 4 (8-16); ASPARTATE AMINO TRANSFERASE 79 U/L (10-37); BILIRUBIN,TOTAL 4.1 MG/DL (0.1-1.0); BLOOD UREA NITROGEN 16 MG/DL (7-18); BUN/CREATININE RATIO 17.8 (10.0-20.0); CALCIUM 8.3 MG/DL (8.5-10.1); CHLORIDE 105 MMOL/L (99-107); GLUCOSE 132 MG/DL (70-104); POTASSIUM 3.7 MMOL/L (3.5-5.1); SODIUM 138 MMOL/L (135-145); TOTAL CARBON DIOXIDE 28.6 MMOL/L (24-32); eGFR > 90 ML/MIN
[2022-11-22 17:45] LABS: ALBUMIN/GLOBULIN RATIO 0.7 (1.1-1.5); TOTAL PROTEIN 6.2 G/DL (6.4-8.2)
[2022-11-22 18:20] VITALS: BP 127/70
== END 2022-11-22 18:22 | disposition home or self-care (01) ==
LOC: ER 13:54
DX: B19.20 Unspecified viral hepatitis C without hepatic coma (principal); R53.83 Other fatigue; F12.90 Cannabis use, unspecified, uncomplicated; F17.200 Nicotine dependence, unspecified, uncomplicated; Z72.89 Other problems related to lifestyle; Z87.442 Personal history of urinary calculi; Z59.00 Homelessness unspecified; Z60.2 Problems related to living alone; Z79.899 Other long term (current) drug therapy
CPT/HCPCS: 36415; 80053; 85025; 99283

== ENCOUNTER 2023-01-08 09:26 | Emergency (ER) | payer MEDICAID ==
[~2023-01-08] VITALS: Ht 185.4 cm; Wt 88.6 kg
[~2023-01-08 09:26] MED LIST changes: -SULF1TAB49 PO
[2023-01-08] MEDS ORDERED: ondansetron/PF 4mg/2ml inj IV ONE (09:45)
[2023-01-08] MEDS ORDERED: normal saline 1000ML IV soln IVB ONE (09:45)
[2023-01-08 10:02] LABS: HEMOGLOBIN 12.2 g/dl (14.0-17.9); MEAN PLATELET VOLUME 7.6 FL (7.4-10.4)
[2023-01-08 10:04] LABS: HEMATOCRIT 37.1 % (42.0-52.0); PLATELET COUNT 111 X10'3 (140-440); RED BLOOD COUNT 3.94 X10'6 (4.70-6.10); RED CELL DISTRIBUTION WIDTH 20.2 % (11.5-14.5); WHITE BLOOD COUNT 4.6 X10'3 (4.5-11.0)
[2023-01-08 10:17] LABS: ALANINE AMINOTRANSFERASE 51 U/L (12-78); ALBUMIN 2.9 G/DL (3.4-5.0); ALKALINE PHOSPHATASE 294 IU/L (46-116); ANION GAP 10 (8-16); ASPARTATE AMINO TRANSFERASE 68 U/L (10-37); BILIRUBIN,TOTAL 3.8 MG/DL (0.1-1.0); BLOOD UREA NITROGEN 15 MG/DL (7-18); BUN/CREATININE RATIO 14.7 (10.0-20.0); CALCIUM 8.8 MG/DL (8.5-10.1); CHLORIDE 107 MMOL/L (99-107); CREATININE 1.02 MG/DL (0.60-1.10); GLUCOSE 119 MG/DL (70-104); POTASSIUM 3.3 MMOL/L (3.5-5.1); SODIUM 142 MMOL/L (135-145); TOTAL CARBON DIOXIDE 24.6 MMOL/L (24-32); eGFR 79 ML/MIN
[2023-01-08 10:19] LABS: LIPASE 423 U/L (73-393)
[2023-01-08 10:21] LABS: ALBUMIN/GLOBULIN RATIO 0.7 (1.1-1.5); TOTAL PROTEIN 7.1 G/DL (6.4-8.2)
[2023-01-08] MEDS ORDERED: iohexol 300mg/ml 100ml inj. ONE (10:36)
[2023-01-08 10:42] LABS: ANISOCYTOSIS 3+; ELLIPTOCYTES FEW; PLATELET ESTIMATE DECREASED; SCHISTOCYTES FEW; TOTAL CELLS COUNTED 100
[2023-01-08 12:09] LABS: CLARITY,URINE CLEAR (Clear); COLOR,URINE YELLOW (Yellow); GLUCOSE, URINE NEGATIVE (Neg); KETONES,URINE NEGATIVE (Neg); LEUKOCYTE ESTERASE ,URINE NEGATIVE (Neg); NITRITES, URINE NEGATIVE (Neg); OCCULT BLOOD,URINE MODERATE (Neg); PROTEIN,URINE NEGATIVE (Neg)
[2023-01-08 12:20] LABS: UA COLLECTION TYPE CLN CATCH MIDSTREAM
[2023-01-08 12:22] LABS: MUCUS STRANDS FEW /LPF (Neg); SQUAMOUS EPITHELIAL CELL,UR FEW /LPF (FEW); WBC,URINE 0-4 /HPF (0-4)
[2023-01-08 12:23] LABS: BACTERIA,URINE FEW /HPF (Neg)
[2023-01-08 18:27] VITALS: BP 104/41
== END 2023-01-08 18:29 | disposition home or self-care (01) ==
LOC: ER 09:26
DX: K85.90 Acute pancreatitis without necrosis or infection, unspecified (principal); K74.60 Unspecified cirrhosis of liver; K80.20 Calculus of gallbladder without cholecystitis without obstruction; R42 Dizziness and giddiness; R53.83 Other fatigue; F12.90 Cannabis use, unspecified, uncomplicated
CPT/HCPCS: 36415; 71045; 74177; 74181; 76700; 80053; 81001; 82948; 83690; 84484; 85007; 85025; 93005; 96361; 96374; 99285; J2405; J3490; J7030; Q9967

== ENCOUNTER 2025-05-09 09:49 | Emergency (ER) | payer MEDICAID ==
[~2025-05-09] VITALS: Ht 185.4 cm; Wt 99.3 kg
[2025-05-09 10:01] VITALS: TEMP 98.6
--- NOTE | 2025-05-09 10:10 | Physician Documentation ---
History of Present Illness ~ Chief Complaint: Urinary Symptoms Stated Complaint: UTI Time Seen by MD: 10:05 Primary Medical Doctor: [facility] Patient is a pleasant 45-year-old male that presents to the emergency department for evaluation of urinary symptoms. Patient reports that he has previously had a UTI and this feels similar although the pain is in a different location. Patient reports that the pain is in his lower abdomen over his bladder but also extends down into the urethra or his penis. Patient denies any perineal or testicular pain or tenderness denies any drainage from his penis patient does not report any unprotected sex at this time denies that he could have an STI. Patient reports that he had some concern for prostate issue in the his prostate possibly feels tender. Patient denies fever chills nausea vomiting diarrhea at this time. Medication Reconciliation Allergies: Coded Allergies: No Known Allergies (Unverified , 05/09/25) Scheduled Lorazepam (Ativan), 1 TAB PO Q12H Ondansetron Hcl (Zofran), 1 TAB PO Q8H Ondansetron Hcl (Zofran), 1 TAB PO Q8H Pantoprazole Sodium (PROTONIX tablet), 1 TAB PO DAILY Pantoprazole Sodium (PROTONIX tablet), 1 TAB PO DAILY Prochlorperazine Maleate (Compazine), 1 TAB PO Q6H Prochlorperazine Maleate (Compazine), 1 TAB PO Q6H Scheduled PRN Ondansetron Hcl (Zofran), 4 MG PO Q6H PRN for nausea/vomiting Past Medical History Past Medical History: Hepatitis C, Kidney Stones Past Surgical History: other Other Past Surgical History: kidney stone sx Alcohol Use: Abuse Drug Use: marijuana Lives with: Alone Lives In: Homeless Occupation: employed Review of Systems ROS As stated above in the HPI, otherwise all systems are reviewed and negative. Physical Exam Vital Signs: Temperature: 98.6, Source: Temporal, Heart Rate: 107, Respiratory Rate: 18, BP: 147/89, Pulse Oximetry: 99, Weight: 99.300 Oxygen Flow Rate: 0 Physical Exam VITALS: Reviewed and as above. GENERAL: Alert, no apparent distress. HEENT: Normocephalic, atraumatic, PERRL, EOMI, dry mucosa, no erythema RESPIRATORY: Lungs clear, normal breath sounds, no respiratory distress. CHEST: No accessory muscle use, no retractions CV: Regular rate, rhythm, no edema, no murmur, No: JVD GI: Soft, mild tender with palpation to the lower abdomen bilaterally, bowels sounds present, no rebound, guarding, or rigidity BACK: No CVA tenderness, or swelling MUSCULOSKELETAL No deformities, no edema SKIN: Warm and dry, no rash NEURO: Oriented x4, No motor or sensory deficit PSYCH: Normal mood and affect, no agitation Progress Results/Orders Results/Orders Orders - EVER ESCALANTE [employer]WORK[employer]INE[employer] Ct Abdomen Pelvis (05/09/25 12:15) Completed Orders - EVER ESCALANTE [employer] Cbc/Diff (05/09/25 10:13) CMP (05/09/25 10:13) Ua W/Microscopic, Cult If Ind (05/09/25 10:13) Ct Abdomen Pelvis (05/09/25 12:15) Iohexol 300mg/Ml 100ml Inj. (Omnipaque-3 (05/09/25 11:58) Vital Signs 05/09/25 10:01 Temp 98.6 Pulse 107 Resp 18 B/P (MAP) 147/89 Pulse Ox 99 O2 Flow Rate 0 Laboratory Tests Test 05/09/25 10:13 05/09/25 10:18 Urine Specimen Description Cln catch midstream Urine Color Dark yellow Urine Clarity Cloudy Urine pH 6.0 Urine Specific [place] 1.025 Urine Protein Trace Urine Glucose (UA) Negative Urine Ketones Negative Urine Occult Blood Large H Urine Nitrite Negative Urine Bilirubin Negative Urine Urobilinogen 1.0 Urine Leukocyte Esterase Negative Urine RBC Tntc Urine WBC 0-4 Urine Squamous Epithelial Cells Few Urine Bacteria 1+ Urine Culture Indicated Not ind Volume Urine Centrifuged 10 ml Urine Comment White Blood Count 4.4 L Red Blood Count 4.62 L Hemoglobin 13.9 L Hematocrit 41.9 L Mean Corpuscular Volume 90.7 Mean Corpuscular Hemoglobin 30.1 Mean Corpuscular Hemoglobin Concent 33.1 Red Cell Distribution Width 21.7 H Platelet Count 95 L Mean Platelet Volume 8.3 Neutrophils (%) (Auto) 53.1 Lymphocytes (%) (Auto) 28.3 Monocytes (%) (Auto) 11.0 Eosinophils (%) (Auto) 6.1 H Basophils (%) (Auto) 1.5 H Neutrophils # (Auto) 2.3 Lymphocytes # (Auto) 1.2 Monocytes # (Auto) 0.5 Eosinophils # (Auto) 0.3 Basophils # (Auto) 0.1 CBC Comment Platelet Estimate Decreased Red Blood Cell Morphology Perf Basophilic Stippling Anisocytosis 3+ Schistocytes Few Sodium Level 138 Potassium Level 4.0 Chloride Level 107 Carbon Dioxide Level 24.9 Anion Gap 6 L Blood Urea Nitrogen 13 Creatinine 0.87 Estimated GFR/1.73 m2 > 90 BUN/Creatinine Ratio 14.9 Glucose Level 88 Calcium Level 8.6 Total Bilirubin 3.0 H Aspartate Amino Transf (AST/SGOT) 44 H Alanine Aminotransferase (ALT/SGPT) 47 Alkaline Phosphatase 230 H Total Protein 7.1 Albumin 2.8 L Globulin 4.3 Albumin/Globulin Ratio 0.7 L Chemistry Comments Medical Decision Making Additional information obtaine: other Findings 45-year-old male presented with lower abdominal and genitourinary pain, found to have a nonobstructing, noninfectious 0.1 cm right renal stone and prostatomegaly on imaging. No evidence of urinary tract infection, obstruction, or acute kidney injury. Pain is controlled, and there are no systemic symptoms. Assessment/Plan: Diagnosis: Nonobstructing, noninfectious right renal calculus; prostatomegaly. Disposition: Medically stable for discharge. No indication for inpatient management as per current guidelines for small, nonobstructing stones without infection or obstruction. Medications: Prescribed tamsulosin (Flomax) for medical expulsive therapy and to address lower urinary tract symptoms associated with prostatomegaly. Instructions: Increase oral fluid intake to achieve urine output >2 L/day. Maintain a low-sodium diet and moderate animal protein intake to reduce recurrence risk. Continue current pain management as needed. Monitor for spontaneous stone passage. Follow-up: Arrange follow-up with primary care provider within 1-2 weeks for reassessment and to discuss further metabolic evaluation and preventive strategies. Outpatient urology referral if symptoms persist, worsen, or for recurrent stone disease. Return precautions: Instructed to return to the ED immediately for any of the following: Fever, chills, or rigors (concern for infection/urosepsis) Intractable or worsening pain not controlled with prescribed medications Nausea/vomiting with inability to tolerate oral intake Gross hematuria with clots or urinary retention Decreased urine output or anuria New onset of dysuria, urgency, or frequency suggestive of infection Signs of acute urinary retention (e.g., inability to void, suprapubic pain) Patient demonstrates understanding of diagnosis, management plan, and return precautions. All questions addressed. Urinary Diff Dx:Considerations: Include: AAA, Aortic dissection, Appendicitis, Appendicitis train, Bowel obstruction, Bladder outlet obstruc., Cholelithiasis, Choleangitis, Cholecystitis, DJD, Epididymitis, Hepatitis, HNP, Impaction, Musculoskeletal pain, Pancreatitis, Postoperative Comp., Prostatitis, Pyelonephritis, Renal failure, Renal infarction, Strain, Urolithiasis, Urinary Obstruction, Urethritis, Urinary retention, UTI, Other Genital Diff Dx:Considerations: Include: Abscess, Balanitis, Balanoposthitis, Cellulitis, Epididymitis, Entrapment injury, Shagufta's gangrene, Foreign body, Facture penis, Hydrocele, Inguinal hernia, Post-op Complication, Paraphimosis, Prostatitis, Priapism, Syphilis, Testicular torsion, Torsion-epididymis, Torsion-appendiceal, Urinary retention, Urethritis, Urethritis-chlamydial, Urethritis-gonococcal, UTI, Other Departure Disposition: HOME / SELF CARE / HOMELESS Impression: Primary Impression: Renal calculi Condition: Stable Discharge Instructions: Renal Colic, Dysuria Additional Instructions: You have been diagnosed with a small, nonobstructing kidney stone and an enlarged prostate (prostatomegaly). You do not have signs of infection or blockage, so you can safely go home with close follow-up. Medications: Start Flomax (tamsulosin) 0.4 mg by mouth once daily for 7 days. Take it about 30 minutes after the same meal each day. Do not crush, chew, or open the capsule. Flomax may help with urinary symptoms and may help pass the stone. Common side effects include dizziness, lightheadedness, and, rarely, fainting. If you feel dizzy, get up slowly from sitting or lying down. Other Instructions: Drink plenty of fluids to help flush out the stone. Aim for at least 2 liters (about 8 cups) of water per day. You may use [id number] pain medications like acetaminophen or ibuprofen as needed, unless told otherwise. Follow a low-sodium diet and moderate your intake of animal protein to help prevent future stones. Follow-Up: Schedule an appointment with your primary care provider within 1-2 weeks to review your symptoms and discuss further evaluation or preventive strategies. Return to the Emergency Department Immediately If You Develop: Fever, chills, or shaking (possible infection) Severe or worsening pain not controlled by medication Nausea or vomiting that prevents you from keeping fluids down Blood in your urine with clots or trouble urinating Inability to urinate or new severe lower abdominal pain Decreased urine output or no urine at all New or worsening burning, urgency, or frequency when urinating If you have any questions or concerns, do not hesitate to seek medical attention. Referrals: NO PRIMARY CARE PROVIDER (PCP) Prescriptions Tamsulosin Hcl* (Flomax*) 0.4 Mg Cap.sr.24h 1 CAP PO DAILY for 10 Days, #10 CAP Prov: EVER ESCALANTE 05/09/25 Education Educated: Patient Educated regarding: diagnosis, treatment, need for follow up Signature Scribe Signature: A Attestation: Scribed for Ever Escalante by RESHMA Campbell . 05/09/25 13:45 EVER ESCALANTE May 09, 2025 10:09
[2025-05-09 10:33] LABS: MEAN PLATELET VOLUME 8.3 FL (7.4-10.4); RED CELL DISTRIBUTION WIDTH 21.7 % (11.5-14.5)
[2025-05-09 10:37] LABS: LEUKOCYTE ESTERASE ,URINE NEGATIVE (Neg); NITRITES, URINE NEGATIVE (Neg); OCCULT BLOOD,URINE LARGE (Neg)
[2025-05-09 10:39] LABS: UA COLLECTION TYPE CLN CATCH MIDSTREAM
[2025-05-09 10:41] LABS: SQUAMOUS EPITHELIAL CELL,UR FEW /LPF (FEW)
[2025-05-09 10:41] LABS: CREATININE 0.87 MG/DL (0.60-1.10); TOTAL CARBON DIOXIDE 24.9 MMOL/L (24-32); eCRCL 119 ML/MIN; eGFR > 90 ML/MIN
[2025-05-09 11:19] LABS: PLATELET ESTIMATE DECREASED
[2025-05-09] MEDS ORDERED: iohexol 300mg/ml 100ml inj. ONE (11:58)
--- NOTE | 2025-05-09 13:22 | RADIOLOGY REPORT ---
Exam: CT CT ABDOMEN PELVIS W/ IV CONTRAST History: Abdominal pain, RBCs in UA COMPARISON: ULTRASOUND OF ABDOMEN on DOS: 01/08/23, CT ABDOMEN PELVIS on DOS: 01/08/23, CT ABDOMEN PELVIS on DOS: 11/17/22, CT ABDOMEN PELVIS on DOS: 02/19/21 Technique: Multidetector spiral CT of the abdomen and pelvis was performed from lung bases to pubic symphysis. Intravenous contrast was administered during this examination. Portal venous imaging was obtained. Axial, coronal and sagittal multiplanar reformats were performed by the technologist on a separate workstation. Radiation Dose : 1. Abdomen/Pelvis: CTDIvol 28mGy, DLP 1431.6 mGy*cm. Findings: Lung Bases: No acute or significant lung base finding. Normal heart size. No pleural or pericardial effusion. Liver: Hepatic cirrhosis. Gallbladder and Biliary Tree: Cholelithiasis noted without secondary findings of cholecystitis or biliary obstruction. Spleen: Unremarkable Pancreas: The pancreas is normal in appearance without focal lesions or abnormal enhancement. Adrenal Glands: Unremarkable Kidneys: No hydronephrosis. Punctate 0.1 cm stone in the lower pole of the right kidney. Bladder: Unremarkable Bowel: The stomach is grossly normal in appearance. Colonic diverticulosis. The appendix is not visualized; however, no secondary findings of acute appendicitis identified. Ascites: Absent Lymphadenopathy: No mesenteric, retroperitoneal or periportal lymphadenopathy. Abdominal Wall and Mesentery: Unremarkable. Vasculature: Numerous abdominal varices. The visualized abdominal aorta is normal in size and caliber. Abdominal and pelvic vessels demonstrate normal enhancement. Pelvic Organs: Prostatomegaly. Musculoskeletal: No aggressive focal bony lesions, acute fractures or dislocation. IMPRESSION: No acute abdominal or pelvic finding. Hepatic cirrhosis with sequelae of portal hypertension. Cholelithiasis without secondary findings of cholecystitis or biliary obstruction. Punctate 0.1 cm stone in the lower pole of the right kidney. Prostatomegaly. Radiation optimization: All CT scans at this facility use at least one of these dose optimization techniques: automated exposure control mA and/or kV adjustment per patient size (includes targeted exams where dose is matched to clinical indication) or iterative reconstruction.
[2025-05-09] MEDS ORDERED: TAMS-55 PO (13:45)
[2025-05-09 13:57] VITALS: BP 144/85; PULSE 92; RESP 16; O2SAT 98
== END 2025-05-09 14:05 | disposition home or self-care (01) ==
LOC: ER 09:50
DX: N20.0 Calculus of kidney (principal); F12.90 Cannabis use, unspecified, uncomplicated; Z87.440 Personal history of urinary (tract) infections; Z87.442 Personal history of urinary calculi; Z86.19 Personal history of other infectious and parasitic diseases; Z59.00 Homelessness unspecified; Z60.2 Problems related to living alone; Z79.899 Other long term (current) drug therapy
CPT/HCPCS: 36415; 74177; 80053; 81001; 85008; 85025; 99285; Q9967